=== PATIENT | male | born 1985 | race Caucasian/White ===

== ENCOUNTER 2021-11-05 05:46 | Emergency (ER) | payer SELFPAY ==
[2021-11-05] MEDS ORDERED: Sodium Chloride 0.9% 1,000 ML ONE (06:11)
[2021-11-05 06:20] LABS: #Basophils 0.1 thou/uL (0.0-0.2); #Eosinphils 0.2 thou/uL (0.0-0.7); #Lymphocytes 1.7 thou/uL (1.20-3.40); #Monocytes 0.7 thou/uL (0.11-0.59); #Neutrophils 6.2 thou/uL (1.40-6.50); %Basophils 1.6 % (0.0-1.0); %Eosinophils 2.3 % (0.0-10.0); %Lymphocytes 18.8 % (21.0-51.0); %Neutrophils 69.4 % (42.0-75.0); Mean Corpuscular HGB CONC 33.9 g/dL (32.0-36.0); Mean Corpuscular Hemoglobin 30.5 pg (27.0-31.0); Mean Corpuscular Volume 89.8 fL (78.0-98.0); Mean Platelet Volume 7.2 fL (7.4-10.4); Platelet Count 320 thou/uL (130-400); RBC Distribution Width 10.7 % (11.5-14.5); Red Blood Cell (RBC) Count 5.57 mill/uL (4.70-6.10); White Blood Cell (WBC) Count 8.9 thou/uL (4.8-10.8)
[2021-11-05] MEDS ORDERED: Lorazepam 2 MG/ML VIAL ONE (06:25)
[2021-11-05 06:40] LABS: Acetaminophen Less than 6.0 mcg/mL (10.0-30.0); Alcohol Less than 10 mg/dL (Less than 10); CK (CPK) 229 U/L (30-200); Salicylate Less than 8.0 mg/dL (15.0-30.0)
[2021-11-05 06:43] LABS: ALT (SGPT) 21 U/L (8-55); AST (SGOT) 22 U/L (5-34); Alkaline Phosphatase 69 U/L (40-110); Anion Gap 16 mmol/L (10-20); BUN (Urea Nitrogen) 10 mg/dL (8.9-20.6); Calc. Creatinine Clearance 0 mL/min (70-130); Carbon Dioxide 26 mmol/L (22-29); Chloride 101 mmol/L (98-107); Globulin 2.7 g/dL (2.4-3.5); Glucose 90 mg/dL (70-105); Lipase 18 U/L (8-78); Potassium 3.7 mmol/L (3.5-5.1); Protein, Total 7.7 g/dL (6.0-8.3); Sodium 139 mmol/L (136-145)
== END 2021-11-05 06:49 ==
LOC: MADERS 05:46
DX: F34.81 Disruptive mood dysregulation disorder (principal); F31.9 Bipolar disorder, unspecified
CPT/HCPCS: 80053; 80307; 82550; 83690; 83735; 84443; 85025; 93005; 96374; J2060; J7050